=== PATIENT | male | born 1985 | race Caucasian/White ===

== ENCOUNTER 2023-01-23 16:34 | Emergency (ER) | payer OTHER ==
[~2023-01-23] VITALS: Ht 167.6 cm; Wt 67.0 kg
[2023-01-23] MEDS ORDERED: ONDA4TAB6 PO ×2 (16:41→21:30)
[2023-01-23] MEDS ORDERED: ACET-683 PO (16:42)
[2023-01-23] MEDS ORDERED: IBUP200T46 PO (16:42)
[2023-01-23] MEDS ORDERED: FAMOTIDINE 20MG/2ML VIAL IVP ONE (17:30)
[2023-01-23] MEDS ORDERED: NS 1,000 ML IV ONE (17:30)
[2023-01-23] MEDS ORDERED: ONDANSETRON 4MG 2ML VIAL IV ONE (17:30)
[2023-01-23 17:37] LABS: BASO # 0.1 10^3/uL (0.0-0.2); BASO % 0.8 % (0.0-1.0); EOS # 0.3 10^3/uL (0.0-0.5); EOS % 3.3 % (0.0-3.0); HEMOGLOBIN 12.5 g/dl (13.5-17.5); LYMPH # 3.2 10^3/uL (1.5-5.0); LYMPH % 36.2 % (24.0-44.0); MEAN CORPUSCULAR HEMOGLOBIN 31.1 pg (27.0-33.0); MEAN CORPUSCULAR HGB CONC 32.9 g/dl (32.0-36.5); MEAN CORPUSCULAR VOLUME 94.5 fl (80.0-96.0); MONO # 0.6 10^3/uL (0.0-0.8); MONO % 7.2 % (2.0-8.0); NEUTROPHILS # 4.6 10^3/uL (1.5-8.5); NEUTROPHILS % 52.2 % (36.0-66.0); PLATELET COUNT, AUTOMATED 241 10^3/uL (150-450); RED BLOOD COUNT 4.02 10^6/uL (4.30-6.10); WHITE BLOOD COUNT 8.7 10^3/uL (4.0-10.0)
[2023-01-23 18:09] LABS: ALBUMIN 3.9 G/DL (3.2-5.2); BILIRUBIN,DIRECT 0.2 MG/DL (<0.4); BILIRUBIN,TOTAL 0.8 MG/DL (0.3-1.2); TOTAL PROTEIN 6.9 G/DL (5.7-8.2)
[2023-01-23] MEDS ORDERED: ISOVUE-370 76% 100ML VIAL As Ordered ONE (19:26)
[2023-01-23] MEDS ORDERED: PEPC1TAB5 PO (21:30)
[2023-01-23 21:56] VITALS: BP 133/71; TEMP 97.8; O2SAT 98
== END 2023-01-23 21:58 | disposition home or self-care (01) ==
LOC: M ED 16:34
DX: K29.00 Acute gastritis without bleeding (principal); Z79.899 Other long term (current) drug therapy
CPT/HCPCS: 74177; 76705; 80047; 80076; 83690; 85025; 87486; 87581; 87633; 87798; 96374; 96375; 99284; J2405; Q9967; S0028

== ENCOUNTER 2023-01-26 19:13 | Emergency (ER) | payer OTHER ==
[~2023-01-26] VITALS: Ht 167.6 cm; Wt 66.5 kg
[~2023-01-26 19:13] MED LIST: ACET-683 PO; IBUP200T46 PO; ONDA4TAB6 PO; PEPC1TAB5 PO
[2023-01-26 19:14] VITALS: TEMP 98.9
[2023-01-26] MEDS ORDERED: KETOROLAC TROMETHAMINE 10 MG TAB PO ONE (22:00)
[2023-01-26 22:48] VITALS: BP 130/79; O2SAT 100
== END 2023-01-26 22:51 | disposition home or self-care (01) ==
LOC: M ED 19:13
DX: M25.512 Pain in left shoulder (principal); V00.841A Fall from standing electric scooter, initial encounter; Y92.410 Unspecified street and highway as the place of occurrence of the external cause; K21.9 Gastro-esophageal reflux disease without esophagitis; F17.210 Nicotine dependence, cigarettes, uncomplicated

== ENCOUNTER 2024-02-20 21:41 | Emergency (ER) | payer OTHER ==
[~2024-02-20] VITALS: Ht 167.6 cm; Wt 68.5 kg
[~2024-02-20 21:41] MED LIST changes: +ONDA-282 PO; -ONDA4TAB6 PO
[2024-02-20 21:42] VITALS: BP 124/68; TEMP 98.7; O2SAT 96
== END 2024-02-21 00:37 | disposition left against medical advice (07) ==
LOC: M ED 21:41
DX: Z53.21 Procedure and treatment not carried out due to patient leaving prior to being seen by health care provider (principal)